=== PATIENT | female | born 1950 | race African-American/Black ===

== ENCOUNTER 2017-10-14 19:47 | Emergency (ER) | payer SELFPAY ==
[2017-10-14 19:56] VITALS: BP 156/87; PULSE 72; TEMP 97.6; BMI 30.1
--- NOTE | 2017-10-14 20:27 | PDOC ---
History of Present Illness - General Exam Limitations: No Limitations - History of Present Illness Initial Comments: 10/14/17 20:39 66 year old female, with significant past medical history of newly diagnosed IDDM (on both novolog and lantus), who presents to the emergency room BIBA after a brief episode of lightheadedness while at the [employer] store just prior to presentation. EMS states that her blood glucose was 60 upon arrival to the scene and they administered 1gram of glucagon en route. The patient explains that as a result of being a newly diagnosed diabetic, her appetite has decreased. She states that she was running errands all day today and did not eat much throughout the day. She felt lightheaded like she was going to pass out , so she called EMS. She denies LOC, chest pain, SOB, headache, nausea, vomiting. Denies recent illness, fever, chills. Allergies: NKDA PCP: Dr. Simms <Susi Art - Last Filed: 10/15/17 00:25> - General History Source: Patient <Memo Lew - Last Filed: 10/15/17 19:36> - General Chief Complaint: Blood Sugar Problem Stated Complaint: Blood Sugar Problem Time Seen by Provider: 10/14/17 20:25 Past History <Susi Art - Last Filed: 10/15/17 00:25> - Suicide/Smoking/Psychosocial Hx Smoking History: Never smoked Have you smoked in the past 12 months: No Information on smoking cessation initiated: No Hx Alcohol Use: No Drug/Substance Use Hx: No <Memo Lew - Last Filed: 10/15/17 19:36> - Past Medical History Allergies/Adverse Reactions: Allergies Allergy/AdvReac Type Severity Reaction Status Date / Time No Known Allergies Allergy Verified 10/14/17 23:35 Home Medications: Ambulatory Orders Hydrocortisone 20 mg PO BID 10/14/17 Levothyroxine [Synthroid -] 112 mcg PO DAILY 10/14/17 Pantoprazole Sodium [Protonix -] 20 mg PO DAILY 10/14/17 Review of Systems - Review of Systems Able to Perform ROS?: Yes Comments:: 10/14/17 20:39 CONSTITUTIONAL: Present: prior to episode she felt dizzy and lightheaded, but otherwise all other review of systems negative. Absent: fever, no chills, no fatigue EYES: Absent: visual changes ENT: Absent: ear pain, no sore throat CARDIOVASCULAR: Absent: chest pain, no palpitations RESPIRATORY: Absent: cough, no SOB GI: Absent: abdominal pain, no nausea, no vomiting, no constipation, no diarrhea GENITOURINARY: Absent: dysuria, no frequency, no hematuria MUSCULOSKELETAL: Absent: back pain, no arthralgia, no myalgia SKIN: Absent: rash <Susi Art - Last Filed: 10/15/17 00:25> *Physical Exam - Vital Signs Last Vital Signs Temp Pulse Resp BP Pulse Ox 97.6 F 72 18 156/87 100 10/14/17 19:54 10/14/17 19:54 10/14/17 19:54 10/14/17 19:54 10/14/17 19:54 - Physical Exam Comments: 10/14/17 20:40 GENERAL: Well-appearing, well-nourished. No apparent distress. HEENT: Normocephalic, atraumatic. PERRL, EOM intact. CARDIOVASCULAR: Normal S1, S2. Regular rate and rhythm. PULMONARY: Clear to auscultation bilaterally. ABDOMEN: Soft, non-distended, non-tender. EXTREMITIES: Normal ROM in all four extremities. No gross deformities. SKIN: Warm, dry. No rash NEUROLOGICAL: No focal neurological deficits. <Susi Art - Last Filed: 10/15/17 00:25> - Vital Signs Last Vital Signs Temp Pulse Resp BP Pulse Ox 97.6 F 72 18 156/87 100 10/14/17 19:54 10/14/17 19:54 10/14/17 19:54 10/14/17 19:54 10/14/17 19:54 <Memo Lew - Last Filed: 10/15/17 19:36> Heart Score/ECG Review #2 General ECG Interpretation: Sinus Rhythm Compared to previous ECG there are: No significant change #1 General ECG Interpretation: Sinus Rhythm, Normal Rate <Susi Art - Last Filed: 10/15/17 00:25> ED Treatment Course - LABORATORY CBC & Chemistry Diagram: 10/14/17 20:50 10/14/17 20:50 <Susi Art - Last Filed: 10/15/17 00:25> - LABORATORY CBC & Chemistry Diagram: 10/14/17 20:50 10/14/17 20:50 <Memo Lew - Last Filed: 10/15/17 19:36> Medical Decision Making - Medical Decision Making 10/15/17 01:11 Dr. Lew: The scribe's documentation has been prepared under my direction and personally reviewed by me in its entirery. I confirm that the note above accurately reflects all work, treatment, procedures, and medical decision making performed by me. 10/15/17 19:36 Troponins x 2 were the same. Pt felt well and was discharged home <Memo Lew - Last Filed: 10/15/17 19:36> *DC/Admit/Observation/Transfer - Attestations Scribe Attestion: 10/14/17 20:40 Documentation prepared by CECILIO Davila, acting as medical receptionist biller for Memo Lew MD. <Susi Art - Last Filed: 10/15/17 00:25> - Discharge Dispostion Admit: No <Memo Lew - Last Filed: 10/15/17 19:36> Diagnosis at time of Disposition: Hypoglycemia, IDDM (insulin dependent diabetes mellitus) - Discharge Dispostion Disposition: HOME Condition at time of disposition: Stable - Referrals Referrals: Alex Simms MD [Primary Care Provider] - - Patient Instructions Printed Discharge Instructions: DI for Diabetes Type 1 -- Adult, DI for Hypoglycemia Additional Instructions: Please be sure you eat often and constantly check your sugar so you don't develope low blood sugar again. Follow up with your doctor. Return if any problems. - Post Discharge Activity
[2017-10-14] MEDS ORDERED: HEMOQUE TEST 1 EACH EACH ONE (20:33)
[2017-10-14 21:02] LABS: EOS % 0.9 % (0-4.5); MCH 29.8 pg (25.7-33.7); MCHC 33.2 g/dl (32.0-36.0); MEAN CELL VOLUME 89.7 fl (80-96); MEAN PLT VOLUME 9.3 fl (7.5-11.1); NEUT % 74.7 % (42.8-82.8); PLATELET COUNT 262 K/MM3 (134-434); RDW 14.4 % (11.6-15.6); WHITE BLOOD COUNT 8.1 K/mm3 (4.0-10.0)
[2017-10-14 21:27] LABS: ALBUMIN 3.6 g/dl (3.4-5.0); ANION GAP 4 (8-16); BILIRUBIN,TOTAL 0.3 mg/dL (0.2-1.0); CALCIUM 8.6 mg/dL (8.5-10.1); CO2 28 mmol/L (21-32); CREATININE 0.9 mg/dL (0.55-1.02); GLUCOSE,RANDOM 133 mg/dL (74-106); MAGNESIUM 2.1 mg/dL (1.8-2.4); SGOT/AST 9 U/L (15-37); SGPT/ALT 17 U/L (12-78); TOT PROT 7.3 g/dl (6.4-8.2)
[2017-10-14 21:30] LABS: ALK PHOS 98 U/L (45-117); CPK 66 IU/L (26-192); TROPONIN I 0.06 ng/ml (0.00-0.05)
[2017-10-15 00:49] LABS: TROPONIN I 0.06 ng/ml (0.00-0.05)
--- NOTE | 2017-10-15 11:34 | EKG ---
Test Reason : Blood Pressure : / mmHG Vent. Rate : 062 BPM Atrial Rate : 062 BPM P-R Int : 122 ms QRS Dur : 114 ms QT Int : 406 ms P-R-T Axes : 034 000 087 degrees QTc Int : 412 ms NORMAL SINUS RHYTHM MINIMAL VOLTAGE CRITERIA FOR LVH, MAY BE NORMAL VARIANT NONSPECIFIC T WAVE ABNORMALITY ABNORMAL ECG WHEN COMPARED WITH ECG OF 14-OCT-2017 20:57, PREVIOUS ECG HAS UNDETERMINED RHYTHM, NEEDS REVIEW Confirmed by CODEY WATTS, CONNIE ([id number]) on 10/15/2017 11:34:01 AM Referred By: Confirmed By:CONNIE ALEGRE MD
--- NOTE | 2017-10-15 11:35 | EKG ---
Test Reason : Blood Pressure : / mmHG Vent. Rate : 071 BPM Atrial Rate : 071 BPM P-R Int : 132 ms QRS Dur : 090 ms QT Int : 414 ms P-R-T Axes : 033 013 064 degrees QTc Int : 449 ms NORMAL SINUS RHYTHM NONSPECIFIC T WAVE ABNORMALITY ABNORMAL ECG WHEN COMPARED WITH ECG OF 14-OCT-2017 21:00, NO SIGNIFICANT CHANGE WAS FOUND Confirmed by CONNIE ALEGRE MD ([id number]) on 10/15/2017 11:35:09 AM Referred By: Confirmed By:CONNIE ALEGRE MD
== END 2017-10-15 01:36 | disposition home or self-care (01) ==
LOC: JER 19:47
DX: E10.649 Type 1 diabetes mellitus with hypoglycemia without coma (principal); Z79.4 Long term (current) use of insulin
CPT/HCPCS: 36415; 80053; 82550; 83690; 83735; 84484; 85025; 93005; 93010; 99281-25; 99283-25